=== PATIENT | female | born 1960 | race African-American/Black ===

== ENCOUNTER → 2024-03-11 | Day surgery (SDC) | payer MEDICARE, MEDICAID ==
[~2024-03-11] VITALS: Ht 172.7 cm; Wt 59.9 kg
[~2024-03-11] MED LIST: ACETYLCHOLINE CHLORIDE INTRAOCULAR SOLUTION 1:100 ELECTROLYTE DILUENT IO ONE; BALANCED SALT IRRIG SOLN COMB1 500ML OP NR; BUSP10TA3 PO; CYAN500T78 PO; FENTANYL CITRATE/PF 50MCG/ML 2ML VIAL ONE; FOLI-43 PO; HALO5TAB PO; HYALURONATE SODIUM 10MG/ML 0.55ML SYRINGE IO ONE; HYDROMORPHONE HCL/PF 1MG/ML INJ IV PRN; LABETALOL 5MG/ML 4ML INJ IV PRN; LIDOCAINE HCL 1% 20ML VIAL ONE; MEPERIDINE HCL/PF 25MG/ML CPJ IV PRN; METH-774 PO; MIDAZOLAM HCL 2 MG/2 ML VIAL ONE; OMEP20TA23 PO; ONDANSETRON HCL 4MG/2ML INJ IV PRN; PHENYLEPHRINE 2.5% OPHTH 15 DROP/ML BOTTLE LEFTEYE ONE; PREG100C PO; PROPOFOL 200MG/20ML VIAL IV ONE; THIA100T75 PO; TOBRAMYCIN/DEXAMETHASONE OPTH DROPS 2.5ML ONE; TROPICAMIDE 1% OPHTH DROPS 15ML LEFTEYE ONE
[2024-03-11] MEDS: SODIUM CHLORIDE 0.9% 1,000 ML IV SCH (10:25)
== END | disposition home or self-care (01) ==
LOC: OR 07:34
PROVIDERS: ATTEND Ophthalmology
DX: E11.36 Type 2 diabetes mellitus with diabetic cataract (principal); H25.89 Other age-related cataract; E78.5 Hyperlipidemia, unspecified; K21.9 Gastro-esophageal reflux disease without esophagitis; M19.90 Unspecified osteoarthritis, unspecified site; F41.9 Anxiety disorder, unspecified; F32.9 Major depressive disorder, single episode, unspecified; F17.210 Nicotine dependence, cigarettes, uncomplicated; Z79.899 Other long term (current) drug therapy; Z98.890 Other specified postprocedural states
CPT/HCPCS: 66984; 93005; V2632; J3010; J3490 ×4; J2250; J2704

== ENCOUNTER → 2024-05-13 | Day surgery (SDC) | payer MEDICARE, MEDICAID ==
[~2024-05-13] VITALS: Ht 172.7 cm; Wt 61.2 kg
[~2024-05-13] MED LIST changes: +CYAN100096 PO; -FENTANYL CITRATE/PF 50MCG/ML 2ML VIAL ONE; -LABETALOL 5MG/ML 4ML INJ IV PRN; -LIDOCAINE HCL 1% 20ML VIAL ONE; +LORA-249 PO; -MEPERIDINE HCL/PF 25MG/ML CPJ IV PRN; -MIDAZOLAM HCL 2 MG/2 ML VIAL ONE; -PHENYLEPHRINE 2.5% OPHTH 15 DROP/ML BOTTLE LEFTEYE ONE; +PHENYLEPHRINE 2.5% OPHTH 15 DROP/ML BOTTLE RIGHTEYE NR; -PROPOFOL 200MG/20ML VIAL IV ONE; -TOBRAMYCIN/DEXAMETHASONE OPTH DROPS 2.5ML ONE; -TROPICAMIDE 1% OPHTH DROPS 15ML LEFTEYE ONE; +TROPICAMIDE 1% OPHTH DROPS 15ML RIGHTEYE NR
[2024-05-13 10:12] LABS: BASOPHILS % 1.5 % (0.0-2.0); EOSINOPHILS % 2.7 % (0.0-5.0); HEMATOCRIT. 40.4 % (36.0-48.0); HEMOGLOBIN. 13.5 g/dL (12.0-16.0); LYMPHOCYTES % 27.9 % (20.0-50.0); MEAN CORPUSCULAR HEMOGLOBIN 30.6 pg (28.0-32.0); MEAN CORPUSCULAR HGB CONC 33.3 g/dL (31.0-37.0); MEAN PLATELET VOLUME 10.6 fl (7.4-10.4); MONOCYTES % 8.2 % (2.0-8.0); NEUTROPHILS % 59.7 % (40.0-76.0); PLATELET 190 x1000/uL (130-400); RED CELL DISTRIBUTION WIDTH 13.6 % (11.6-14.6); WHITE BLOOD COUNT 6.3 x1000/uL (4.5-11.0)
[2024-05-13 10:22] LABS: POTASSIUM 4.2 mEq/L (3.5-5.1)
[2024-05-13 10:24] LABS: CALCIUM 9.2 mg/dL (8.7-10.4)
[2024-05-13 10:28] LABS: CREATININE 1.2 mg/dL (0.6-1.0)
== END | disposition home or self-care (01) ==
LOC: OR 09:35
PROVIDERS: ATTEND Ophthalmology
DX: E11.36 Type 2 diabetes mellitus with diabetic cataract (principal); H25.89 Other age-related cataract; E11.40 Type 2 diabetes mellitus with diabetic neuropathy, unspecified; E78.5 Hyperlipidemia, unspecified; F20.0 Paranoid schizophrenia; K21.9 Gastro-esophageal reflux disease without esophagitis; F32.9 Major depressive disorder, single episode, unspecified; M19.90 Unspecified osteoarthritis, unspecified site; Z87.891 Personal history of nicotine dependence; Z79.899 Other long term (current) drug therapy; Z98.890 Other specified postprocedural states; Z86.2 Personal history of diseases of the blood and blood-forming organs and certain disorders involving the immune mechanism
CPT/HCPCS: 66984; 80048; 85025; 36415; 93005; V2632; J3490 ×3